=== PATIENT | male | born 1970 | race Caucasian/White ===

== ENCOUNTER 2017-12-05 08:11 | Inpatient (IN) ==
[2017-12-05] MEDS ORDERED: Sod Chloride 0.9% Inj 1,000 ML IV.SIG ONE (08:31)
[2017-12-05] MEDS ORDERED: Morphine Inj 4 MG/ML Vial IV.PUSH ONE (08:31)
[2017-12-05 08:57] LABS: Baso # (Auto) 0.3 th/mm3 (0.0-0.2); Baso % (Auto) 4.3 % (0.0-2.0); Eos % (Auto) 0.2 % (0.0-4.0); Hematocrit 33.6 % (39.0-51.0); Hemoglobin 11.6 gm/dL (13.0-17.0); Lymph # (Auto) 0.9 th/mm3 (1.0-4.8); Lymph % (Auto) 11.7 % (9.0-44.0); Mean Corpuscular HGB Conc 34.6 % (32.0-36.0); Mean Corpuscular Hemoglobin 33.2 pg (27.0-34.0); Mean Corpuscular Volume 95.9 fL (80.0-100.0); Mono # (Auto) 0.3 th/mm3 (0.0-0.9); Mono % (Auto) 3.4 % (0.0-8.0); Neut # (Auto) 6.5 th/mm3 (1.8-7.7); Neut % (Auto) 80.4 % (16.0-70.0); Platelet Count 107 th/mm3 (150-450); Red Cell Distribution Width 15.7 % (11.6-17.2)
[2017-12-05 09:08] LABS: Activated Partial Thrombo Time 25.4 sec (24.3-30.1); INR 1.3 Ratio; Prothrombin Time 13.1 sec (9.8-11.6)
--- NOTE | 2017-12-05 09:08 | ED ---
HPI General Chief complaint: Abdominal Pain Stated complaint: stomach pain/chills/diarrhea x 4 am Time Seen by Provider: 12/05/17 08:27 Source: patient Mode of arrival: ambulatory Limitations: no limitations History of Present Illness HPI narrative: Patient is a 47 year old male who comes in complaining of lower abdominal pain. He says he woke up at 4 this morning with pain in his lower abdomen. He says he then vomited and has had diarrhea. He says the pain has become progressively worse and movement or touching the area makes it worse. He has felt chilled, but did not take his temperature. He has not taken anything for pain. He says he has also developed SOB. He denies any chest pain. He denies sick contacts. Severity is moderate to severe. Related Data Home Medications Medication Instructions Recorded Confirmed No Known Home Medications 12/05/17 12/05/17 Allergies Allergy/AdvReac Type Severity Reaction Status Date / Time No Known Allergies Allergy NONE Uncoded 12/05/17 08:24 Review of Systems ROS: all other systems reviewed are negative Constitutional Reports chills ENT Denies dizziness Cardiovascular Denies chest pain and Denies syncope Respiratory Denies cough and Reports dyspnea Gastrointestinal Reports abdominal pain, Reports diarrhea, Reports nausea and Reports vomiting Genitourinary Denies dysuria and Denies flank pain Musculoskeletal Denies myalgias and Denies arthralgias Integumentary/Breasts Denies sores and Denies wounds Neurologic Denies focal weakness and Denies numbness PMFSH Medical History Medical History Patient denies medical problems (Acute) Surgical History Surgical History Hx of appendectomy (Acute) Family History Family History Other No pertinent family history Social History Social History Substance History: No History of Abuse Second Hand Smoke Exposure: No Smoking Status: Never smoker How Often Do You Have a Drink Containing Alcohol: 4 or more times a week Recent Travel in [facility] within the Last 8 Weeks: No Recent Out of Country Travel within the Last 8 Weeks: No Immunization History Tetanus Immunization: >5 Years Exam Narrative Exam Narrative: GENERAL: Awake and alert, in mild distress due to pain. SKIN: Focused skin assessment warm/dry. No wounds or signs of infection. Jaundice present. HEAD: Atraumatic. Normocephalic. EYES: Pupils equal and round. EOMI. Scleral icterus present. ENT: Mucous membranes pink and moist. NECK: Trachea midline. No JVD. CARDIOVASCULAR: Regular rate and rhythm. No murmur appreciated. RESPIRATORY: No accessory muscle use. Clear to auscultation. Breath sounds equal bilaterally. GASTROINTESTINAL: Abdomen soft, nondistended. Diffusely tender to palpation with voluntary guarding. MUSCULOSKELETAL: No obvious deformities. No clubbing. No cyanosis. No edema. NEUROLOGICAL: Awake and alert. No obvious cranial nerve deficits. Motor grossly within normal limits. Normal speech. PSYCHIATRIC: Appropriate mood and affect; insight and judgment normal. Course Initial Documented Vital Signs Temperature 99 F 12/05/17 08:20 Pulse Rate 84 12/05/17 08:20 Respiratory Rate 19 12/05/17 08:20 Blood Pressure 103/56 L 12/05/17 08:20 Pulse Oximetry 100 12/05/17 08:20 Last Documented Vital Signs Temperature 98.4 F 12/06/17 00:00 Pulse Rate 78 12/06/17 00:00 Respiratory Rate 16 12/06/17 00:00 Blood Pressure 102/56 L 12/06/17 00:00 Pulse Oximetry 96 12/06/17 00:00 Medical Decision Making MDM Narrative Medical decision making narrative: Patient is a 47 year old male who comes in complaining of abdominal pain. Exam shows tenderness to the RLQ and yellowing of the skin. IV established, labs sent. Labs show elevated PT, INR, decrease platelets, elevated bilirubin. CT abd/pelvis performed shows inflammation of the cecum. Patient given Cipro. Flagyl not given because patient drank alcohol last night. Patient admitted for further management. Medical Screen Exam Complete: Yes Emergency Medical Condition: Yes Differential Diagnosis Differential Diagnosis: cholecystitis vs colitis vs liver failure Medical Records Medical records reviewed: Yes I reviewed the patient's medical records. Lab Data Lab results reviewed: Yes I reviewed the patient's lab results. Result diagrams: 12/06/17 06:05 12/06/17 06:05 Lab Results 12/05/17 12/05/17 12/05/17 Range/Units 08:40 08:40 08:40 CBC w Diff Auto diff final WBC 8.0 (4.0-11.0) th/mm3 RBC 3.50 L (4.50-5.90) mil/mm3 Hgb 11.6 L (13.0-17.0) gm/dL Hct 33.6 L (39.0-51.0) % MCV 95.9 (80.0-100.0) fL MCH 33.2 (27.0-34.0) pg MCHC 34.6 (32.0-36.0) % RDW 15.7 (11.6-17.2) % Plt Count 107 L (150-450) th/mm3 MPV 9.0 (7.0-11.0) fL Neut % (Auto) 80.4 H (16.0-70.0) % Lymph % (Auto) 11.7 (9.0-44.0) % [place] % (Auto) 3.4 (0.0-8.0) % Eos % (Auto) 0.2 (0.0-4.0) % Baso % (Auto) 4.3 H (0.0-2.0) % Neut # (Auto) 6.5 (1.8-7.7) th/mm3 Lymph # (Auto) 0.9 L (1.0-4.8) th/mm3 [place] # (Auto) 0.3 (0.0-0.9) th/mm3 Eos # (Auto) 0.0 (0.0-0.4) th/mm3 Baso # (Auto) 0.3 H (0.0-0.2) th/mm3 WBC Differential . Differential Comment . PT 13.1 H (9.8-11.6) sec INR 1.3 Ratio APTT 25.4 (24.3-30.1) sec Sodium 137 (136-145) meq/L Potassium 3.9 (3.5-5.1) meq/L Chloride 101 (98-107) meq/L Carbon Dioxide 24.5 (21.0-32.0) meq/L Anion Gap 12 (5-15) meq/L BUN 13 (7-18) mg/dL Creatinine 1.20 (0.60-1.30) mg/dL Estimated GFR 64 L (>89) mL/min Random Glucose 121 H (74-106) mg/dL Lactic Acid (0.4-2.0) mmol/L Calcium 8.1 L (8.5-10.1) mg/dL Total Bilirubin 2.5 H (0.2-1.0) mg/dL AST 115 H (15-37) U/L ALT 56 (12-78) U/L Alkaline Phosphatase 177 H (45-117) U/L Troponin I (0.02-0.05) ng/mL Total Protein 7.4 (6.4-8.2) g/dL Albumin 2.8 L (3.4-5.0) g/dL Lipase 141 (73-393) U/L Ur Collection Type Urine Color (Yellw/Straw) Urine Clarity (Clear) Urine pH (5.0-8.5) Ur Specific [place] (1.002-1.035) Urine Protein (Neg-Trace) mg/dL Urine Glucose (UA) (Negative) mg/dL Urine Ketones (Negative) mg/dL Urine Occult Blood (Negative) Urine Nitrate (Negative) Urine Bilirubin (Negative) Urine Urobilinogen (Less than 2) mg/dL Ur Leukocyte Esterase (Negative) Urine RBC (0-3) /hpf Urine WBC (0-5) /hpf Ur Squamous Epith Cells (0-5) /hpf Hyaline Casts (0-3) /lpf Urine Mucus (Occasional) /lpf Micro UA Comment Ur Microscopic Review Urine Culture Comments Blood Type Blood Type Recheck Antibody Screen 12/05/17 12/05/17 12/05/17 Range/Units 08:40 08:40 08:40 CBC w Diff WBC (4.0-11.0) th/mm3 RBC (4.50-5.90) mil/mm3 Hgb (13.0-17.0) gm/dL Hct (39.0-51.0) % MCV (80.0-100.0) fL MCH (27.0-34.0) pg MCHC (32.0-36.0) % RDW (11.6-17.2) % Plt Count (150-450) th/mm3 MPV (7.0-11.0) fL Neut % (Auto) (16.0-70.0) % Lymph % (Auto) (9.0-44.0) % [place] % (Auto) (0.0-8.0) % Eos % (Auto) (0.0-4.0) % Baso % (Auto) (0.0-2.0) % Neut # (Auto) (1.8-7.7) th/mm3 Lymph # (Auto) (1.0-4.8) th/mm3 [place] # (Auto) (0.0-0.9) th/mm3 Eos # (Auto) (0.0-0.4) th/mm3 Baso # (Auto) (0.0-0.2) th/mm3 WBC Differential Differential Comment PT (9.8-11.6) sec INR Ratio APTT (24.3-30.1) sec Sodium (136-145) meq/L Potassium (3.5-5.1) meq/L Chloride (98-107) meq/L Carbon Dioxide (21.0-32.0) meq/L Anion Gap (5-15) meq/L BUN (7-18) mg/dL Creatinine (0.60-1.30) mg/dL Estimated GFR (>89) mL/min Random Glucose (74-106) mg/dL Lactic Acid 1.7 (0.4-2.0) mmol/L Calcium (8.5-10.1) mg/dL Total Bilirubin (0.2-1.0) mg/dL AST (15-37) U/L ALT (12-78) U/L Alkaline Phosphatase (45-117) U/L Troponin I Less than 0.02 L (0.02-0.05) ng/mL Total Protein (6.4-8.2) g/dL Albumin (3.4-5.0) g/dL Lipase (73-393) U/L Ur Collection Type Urine Color (Yellw/Straw) Urine Clarity (Clear) Urine pH (5.0-8.5) Ur Specific [place] (1.002-1.035) Urine Protein (Neg-Trace) mg/dL Urine Glucose (UA) (Negative) mg/dL Urine Ketones (Negative) mg/dL Urine Occult Blood (Negative) Urine Nitrate (Negative) Urine Bilirubin (Negative) Urine Urobilinogen (Less than 2) mg/dL Ur Leukocyte Esterase (Negative) Urine RBC (0-3) /hpf Urine WBC (0-5) /hpf Ur Squamous Epith Cells (0-5) /hpf Hyaline Casts (0-3) /lpf Urine Mucus (Occasional) /lpf Micro UA Comment Ur Microscopic Review Urine Culture Comments Blood Type A Positive Blood Type Recheck Required Antibody Screen Negative 12/05/17 12/06/17 12/06/17 Range/Units 11:10 06:05 06:05 CBC w Diff Slide review pending WBC 8.3 (4.0-11.0) th/mm3 RBC 3.15 L (4.50-5.90) mil/mm3 Hgb 10.4 L (13.0-17.0) gm/dL Hct 31.5 L (39.0-51.0) % MCV 99.8 D (80.0-100.0) fL MCH 33.0 (27.0-34.0) pg MCHC 33.1 (32.0-36.0) % RDW 14.7 (11.6-17.2) % Plt Count 76 L (150-450) th/mm3 MPV 9.4 (7.0-11.0) fL Neut % (Auto) 70.5 H (16.0-70.0) % Lymph % (Auto) 22.2 (9.0-44.0) % [place] % (Auto) 5.7 (0.0-8.0) % Eos % (Auto) 1.5 (0.0-4.0) % Baso % (Auto) 0.1 (0.0-2.0) % Neut # (Auto) 5.9 (1.8-7.7) th/mm3 Lymph # (Auto) 1.8 (1.0-4.8) th/mm3 [place] # (Auto) 0.5 (0.0-0.9) th/mm3 Eos # (Auto) 0.1 (0.0-0.4) th/mm3 Baso # (Auto) 0.0 (0.0-0.2) th/mm3 WBC Differential Differential Comment . PT (9.8-11.6) sec INR Ratio APTT (24.3-30.1) sec Sodium 137 (136-145) meq/L Potassium 3.2 L (3.5-5.1) meq/L Chloride 102 (98-107) meq/L Carbon Dioxide 27.3 (21.0-32.0) meq/L Anion Gap 8 (5-15) meq/L BUN 14 (7-18) mg/dL Creatinine 1.20 (0.60-1.30) mg/dL Estimated GFR 64 L (>89) mL/min Random Glucose 91 (74-106) mg/dL Lactic Acid (0.4-2.0) mmol/L Calcium 7.6 L (8.5-10.1) mg/dL Total Bilirubin 4.3 H (0.2-1.0) mg/dL AST 77 H (15-37) U/L ALT 40 (12-78) U/L Alkaline Phosphatase 136 H (45-117) U/L Troponin I (0.02-0.05) ng/mL Total Protein 6.6 D (6.4-8.2) g/dL Albumin 2.4 L (3.4-5.0) g/dL Lipase (73-393) U/L Ur Collection Type Clean catch Urine Color Yellow (Yellw/Straw) Urine Clarity Clear (Clear) Urine pH 5.5 (5.0-8.5) Ur Specific [place] 1.015 (1.002-1.035) Urine Protein Negative (Neg-Trace) mg/dL Urine Glucose (UA) Negative (Negative) mg/dL Urine Ketones Negative (Negative) mg/dL Urine Occult Blood Negative (Negative) Urine Nitrate Negative (Negative) Urine Bilirubin Negative (Negative) Urine Urobilinogen 1.0 (Less than 2) mg/dL Ur Leukocyte Esterase Negative (Negative) Urine RBC 0-3 (0-3) /hpf Urine WBC 0-5 (0-5) /hpf Ur Squamous Epith Cells 0-5 (0-5) /hpf Hyaline Casts 0-3 (0-3) /lpf Urine Mucus Few H (Occasional) /lpf Micro UA Comment Culture not ind Ur Microscopic Review Microscopic reviewed Urine Culture Comments Culture not ind Blood Type Blood Type Recheck Antibody Screen Imaging Data Radiologist's impression: Abdomen/Pelvis CT 12/05/17 08:31 . CONCLUSION: 1. Minimal inflammatory changes around the cecum without adenopathy. Patient's appendix is surgically absent. Considerations would include inflammatory process such as typhlitis and early colitis. 2. No other significant amount is appreciated. Chest X-Ray 12/05/17 08:51 CONCLUSION: Mild left lung scarring or atelectasis Discharge Plan Discharge Disposition Patient Disposition: 30 Still Patient Discharge Condition Condition: Stable Discharge Details Diagnosis: Colitis, Hyperbilirubinemia, Coagulopathy Physicians Team ED Provider: Laura Curran Primary Care Provider: Primary Care Ainsley Lin Attending Provider: Marilyn Petersen Discharge Interventions Interventions: ED Discharge Assessment Last Done: 12/05/17 13:09 Vital Signs Last Done: 12/05/17 10:15 Status ED Status: Left Department Discharge Information Discharge Date/Time: 12/05/17 13:10
--- NOTE | 2017-12-05 09:15 | XR ---
EXAM DATE: 12/05/2017 8:51 AM EDT AGE/SEX: 47 years / Male INDICATIONS: Shortness of breath, abdominal pain, and diarrhea. CLINICAL DATA: This is the patient's initial encounter. Patient reports that signs and symptoms have been present for 1 day and indicates a pain score of 7/10. MEDICAL/SURGICAL HISTORY: None. None. COMPARISON: No prior exams available for comparison. FINDINGS: Slight probable subsegmental atelectasis in the left lower lobe. Lungs otherwise clear. No pleural ef fusion identified. Cardiac contours are satisfactory. CONCLUSION: Mild left lung scarring or atelectasis Electronically signed by: Vitor Wylie MD 12/05/2017 9:14 AM EDT
[2017-12-05 10:22] LABS: Anion Gap 12 meq/L (5-15); Blood Urea Nitrogen 13 mg/dL (7-18); Carbon Dioxide 24.5 meq/L (21.0-32.0); Chloride 101 meq/L (98-107); Potassium 3.9 meq/L (3.5-5.1); Sodium 137 meq/L (136-145)
[2017-12-05 10:23] LABS: Alanine Aminotransferase 56 U/L (12-78); Aspartate Aminotransferase 115 U/L (15-37); Calcium 8.1 mg/dL (8.5-10.1); Glomerular Filtration Rate 64 mL/min (>89); Glucose,Random 121 mg/dL (74-106); Total Protein 7.4 g/dL (6.4-8.2)
[2017-12-05 10:24] LABS: Albumin 2.8 g/dL (3.4-5.0); Alkaline Phosphatase 177 U/L (45-117); Lipase 141 U/L (73-393)
--- NOTE | 2017-12-05 10:52 | CT ---
EXAM DATE: 12/05/2017 9:00 AM EDT AGE/SEX: 47 years / Male INDICATIONS: Lower abdominal pain, nausea, vomiting and diarrhea. CLINICAL DATA: This is the patient's initial encounter. Patient reports that signs and symptoms have been present for 1 day and indicates a pain score of 7/10. MEDICAL/SURGICAL HISTORY: None. Appendectomy. ORAL CONTRAST: No oral contrast ingested. RADIATION DOSE: 7.91 CTDI (mGy) COMPARISON: No prior exams available for comparison. TECHNIQUE: Multiple contiguous axial images were obtained through the abdomen and pelvis following b olus infusion of 90 ml Omnipaque 350 (iohexol) nonionic water-soluble contrast as a single exam dos e. No oral contrast ingested. Using automated exposure control and adjustment of the mA and/or kV ac cording to patient size, radiation dose was kept as low as reasonably achievable to obtain optimal di agnostic quality images. DICOM format image data is available electronically for review and comparis on. FINDINGS: Minimal bibasilar parental changes with a small 7 mm nodule right base. There is no pericardial effusion The liver and gallbladder are unremarkable. Pancreas and spleen appear unremarkable. Adrenals and kidneys are unremarkable. There are mild inflammatory changes in the right lower quadrant with some associated bowel wall thick ening. By history the patient's appendix is surgically absent. The descending, transverse and descend ing colon unremarkable. In the pelvis there are no inflammatory changes. Bladder prostate and seminal vesicles appear unremar kable. There is no ascites. . CONCLUSION: 1. Minimal inflammatory changes around the cecum without adenopathy. Patient's appendix is surgicall y absent. Considerations would include inflammatory process such as typhlitis and early colitis. 2. No other significant amount is appreciated. Electronically signed by: El Soares MD 12/05/2017 10:51 AM EDT
[2017-12-05 11:23] LABS: Bilirubin,Urine Negative (Negative); Clarity,Urine Clear (Clear); Color,Urine Yellow (Yellw/Straw); Glucose,Urine (UA) Negative (Negative); Leukocyte Esterase,Urine Negative (Negative); Nitrite,Urine Negative (Negative); PH,Urine 5.5 (5.0-8.5); Specific Gravity,Urine 1.015 (1.002-1.035)
[2017-12-05 11:35] LABS: RBC,Urine 0-3 /hpf (0-3); Squamous Epithelial Cell,Urine 0-5 /hpf (0-5)
[2017-12-05 11:36] LABS: Hyaline Casts,Urine 0-3 /lpf (0-3); Mucus,Urine Few /lpf (Occasional); WBC,Urine 0-5 /hpf (0-5)
[2017-12-05] MEDS ORDERED: Ciprofloxacin 400 MG/200 ML 400 MG/200 ML PIGGYBACK IV.SIG ONE (11:46)
[2017-12-05] MEDS ORDERED: *morphine SULFATE 2 MG/ML PERIprocedure ONLY IV.PUSH STA (11:47)
[2017-12-05] MEDS ORDERED: Morphine Sulfate Inj 2 MG/ML Vial IV.PUSH ONE (12:07)
--- NOTE | 2017-12-05 12:41 | P.HPIM ---
History of Present Illness Primary Care Physician: No Primary Care Physician Chief Complaint: abdominal pain History of Present Illness: patient is a 47 y/o male with history of alcohol abuse- otherwise with no other significant past medical history presented to ER with abdominal pain. he says that the pain started yesterday. pain was initially 4/10 but it gradually got worse. pain is periumbilical with no radiation. he says that he had some fever and night sweats last night along with some nausea, vomiting. he says he had on and off mild diarrhea. Inpatient Certification: I certify that the inpatient services were ordered in accordance with Medicare regulations governing the order. This includes certification that hospital inpatient services are reasonable and necessary and in the case of services not specified as inpatient-only under 42 CFR 419.22(n), that they are appropriately provided as inpatient services in accordance to with the 2-midnight benchmark under 43 CFR 412.3(e) Review of Systems All other systems reviewed negative except as stated in HPI PMFSH - History History Provided By: Patient - Medical History Medical History: Medical History (Last Reviewed 12/05/17 @ 12:38 by Marilyn Petersen MD) Patient denies medical problems - Surgical History Surgical History: Surgical History (Last Reviewed 12/05/17 @ 12:38 by Marilyn Peteresn MD) Hx of appendectomy - Family History Family History: Family History (Last Updated 12/05/17 @ 12:38 by Marilyn Petersen MD) Other No pertinent family history - Tobacco History Second Hand Smoke Exposure: No Smoking Status: Never smoker - Alcohol History How Often Do You Have a Drink Containing Alcohol: 4 or more times a week - Substance Use History Substance History: No History of Abuse - Travel History Recent Travel in the [place] Within the Last 8 Weeks: No Recent Travel Out of the Country Within the Last 8 Weeks: No - Immunization History Tetanus Immunization: >5 Years Medications and Allergies Active Medications: Active Medications Ciprofloxacin/Dextrose (Cipro 400 Mg/200 Ml Inj) 400 mg in 200 mls @ 200 mls/ hr IV.SIG ONCE ONE Stop: 12/05/17 12:45 Last Admin: 12/05/17 12:03 Dose: 200 mls/hr Sodium Chloride (Ns Flush) 2 ml IV.FLUSH PRN PRN PRN Reason: FLUSH AFTER USING IV ACCESS Allergies Allergy/AdvReac Type Severity Reaction Status Date / Time No Known Allergies Allergy NONE Uncoded 12/05/17 08:24 Home Medications Medication Instructions Recorded Confirmed Type No Known Home Medications 12/05/17 12/05/17 History Exam Vital signs: Vital Signs 12/05/17 08:20 12/05/17 09:02 12/05/17 10:15 Temperature 99 F Pulse Rate 84 96 H 88 Respiratory Rate 19 18 18 Blood Pressure 103/56 L 116/65 116/66 Pulse Oximetry 100 98 95 Intake & Output 12/04/17 12/05/17 12/05/17 18:59 06:59 18:59 Intake Total 1000 / 1000 Balance 1000 / 1000 Weight 79.5 kg Intake: IV 1000 / 1000 NS Inj 1,000 ML @ Wide Open IV. 1000 / 1000 SIG BOLUS ONE Rx#:[id number] - Constitutional no acute distress - Routine HEENT Exam Eye: Present: PERRL - Routine Neck Exam Present: full ROM - Routine Respiratory Exam Present: CTA bilaterally - Routine Cardiovascular Exam Present: RRR - Routine Abdominal Exam Present: soft, tenderness (mild periumbilical tenderness.) - Routine Extremities Exam Comments: no pedal edema. - Routine Neurological Exam Present: alert, oriented X3 Results - Labs CBC & Chem 7: 12/05/17 08:40 12/05/17 08:40 Labs: Short CBC 12/05/17 Range/Units 08:40 WBC 8.0 (4.0-11.0) th/mm3 Hgb 11.6 L (13.0-17.0) gm/dL Hct 33.6 L (39.0-51.0) % Plt Count 107 L (150-450) th/mm3 BMP 12/05/17 08:40 Sodium 137 Potassium 3.9 Chloride 101 Carbon Dioxide 24.5 BUN 13 Creatinine 1.20 Calcium 8.1 L Cardiac Enzymes 12/05/17 Range/Units 08:40 Troponin I Less than 0.02 L (0.02-0.05) ng/mL Liver Function 12/05/17 Range/Units 08:40 Total Bilirubin 2.5 H (0.2-1.0) mg/dL AST 115 H (15-37) U/L ALT 56 (12-78) U/L Alkaline Phosphatase 177 H (45-117) U/L Albumin 2.8 L (3.4-5.0) g/dL Urine 12/05/17 Range/Units 11:10 Urine Color Yellow (Yellw/Straw) Urine Clarity Clear (Clear) Urine pH 5.5 (5.0-8.5) Ur Specific [place] 1.015 (1.002-1.035) Urine Protein Negative (Neg-Trace) mg/dL Urine Glucose (UA) Negative (Negative) mg/dL - Imaging Impressions Abdomen/Pelvis CT 12/05/17 08:31 . CONCLUSION: 1. Minimal inflammatory changes around the cecum without adenopathy. Patient's appendix is surgically absent. Considerations would include inflammatory process such as typhlitis and early colitis. 2. No other significant amount is appreciated. Chest X-Ray 12/05/17 08:51 CONCLUSION: Mild left lung scarring or atelectasis Caprini VTE Risk Assessment Caprini VTE Risk Assessment: Moderate/High Risk (score >= 2) VTE Pharmacological Exception Reason: High risk for bleeding Caprini Risk Assessment Model: Point Value = 1 Point Value = 2 Point Value = 3 Point Value = 5 Age 41-60 Minor surgery BMI > 25 kg/m2 Swollen legs Varicose veins or History of unexplained or recurrent spontaneous Oral contraceptives or hormone replacement Sepsis (< 1 month) Serious lung disease, including pneumonia (< 1 month) Abnormal pulmonary function Acute myocardial infarction Congestive heart failure (< 1 month) History of inflammatory bowel disease Medical patient at bed rest Age 61-74 Arthroscopic surgery Major open surgery (> 45 min) Laparoscopic surgery (> 45 min) Malignancy Confined to bed (> 72 hours) Immobilizing plaster cast Central venous access Age >= 75 History of VTE Family history of VTE Factor V Leiden Prothrombin [id number] Lupus anticoagulant Anticardiolipin antibodies Elevated serum homocysteine Heparin-induced thrombocytopenia Other congenital or acquired thrombophilia Stroke (< 1 month) Elective arthroplasty Hip, pelvis, or leg fracture Acute spinal cord injury (< 1 month) Prophylaxis Regimen: Total Risk Factor Score Risk Level Prophylaxis Regimen 0-1 Low Early ambulation 2 Moderate Order ONE of the following: *Sequential Compression Device (SCD) *Heparin 5000 units SQ BID 3-4 Higher Order ONE of the following medications: *Heparin 5000 units SQ TID *Enoxaparin/Lovenox 40 mg SQ daily (WT < 150 kg, CrCl > 30 mL/min) *Enoxaparin/Lovenox 30 mg SQ daily (WT < 150 kg, CrCl > 10-29 mL/min) *Enoxaparin/Lovenox 30 mg SQ BID (WT < 150 kg, CrCl > 30 mL/min) AND/OR *Sequential Compression Device (SCD) 5 or more Highest Order ONE of the following medications: *Heparin 5000 units SQ TID (Preferred with Epidurals) *Enoxaparin/Lovenox 40 mg SQ daily (WT < 150 kg, CrCl > 30 mL/min) *Enoxaparin/Lovenox 30 mg SQ daily (WT < 150 kg, CrCl > 10-29 mL/min) *Enoxaparin/Lovenox 30 mg SQ BID (WT < 150 kg, CrCl > 30 mL/min) AND *Sequential Compression Device (SCD) Assessment and Plan - Plan A/P - colitis keep NPO for now- continue with IV antibiotics- continue with supportive care with IV fluid, pain control and antiemetics as needed. -alcohol abuse start o CIWA- counselled on drinking cessation. -thrombocytopenia/ elevated LFT's - due to alcohol; will monitor. Discussed Condition With: ER physician and the patient. Discharge Planning: home- within the next 48 hrs if stable.
[2017-12-05] MEDS ORDERED: Acetaminophen 325 MG Tablet PO PRN (12:42)
[2017-12-05] MEDS ORDERED: LORazepam 1 MG Tablet PO PRN (12:43)
[2017-12-05] MEDS ORDERED: Haloperidol Inj 5 MG/ML Ampul IV.PUSH PRN (12:43)
--- NOTE | 2017-12-05 13:57 | ECG ---
Date Performed: 12/05/2017 Time Performed: 08:49:28 PTAGE: 47 years EKG: Sinus rhythm NO PREVIOUS TRACING DOCTOR: Aminah Erazo M.D. Interpretating Date/Time 12/05/2017 13:56:10
[2017-12-05] MEDS ORDERED: Multivitamin Inj 10 ML, Thiamine Inj 100 MG, Folic Acid Inj 1 MG in Dextrose 5%/NaCl 0.... IV.SIG SCH (14:00)
[2017-12-05] MEDS: Multivitamin Inj 10 ML, Thiamine Inj 100 MG, Folic Acid Inj 1 MG in Sodium Chlor 0.9% I... IV.SIG SCH (15:50)
[2017-12-05] MEDS: Piperacil/Tazo 3.375 GM Premix 50 ML IV.SIG SCH ×2 (15:51→22:08)
[2017-12-05] MEDS: Morphine Inj 4 MG/ML Vial IV.PUSH PRN ×2 (18:05→22:07)
[2017-12-06] MEDS: Morphine Inj 4 MG/ML Vial IV.PUSH PRN (02:37)
[2017-12-06] MEDS: Piperacil/Tazo 3.375 GM Premix 50 ML IV.SIG SCH ×3 (05:55→21:57)
[2017-12-06 06:34] LABS: Baso % (Auto) 0.1 % (0.0-2.0); Eos # (Auto) 0.1 th/mm3 (0.0-0.4); Eos % (Auto) 1.5 % (0.0-4.0); Hematocrit 31.5 % (39.0-51.0); Hemoglobin 10.4 gm/dL (13.0-17.0); Lymph # (Auto) 1.8 th/mm3 (1.0-4.8); Lymph % (Auto) 22.2 % (9.0-44.0); Mean Corpuscular HGB Conc 33.1 % (32.0-36.0); Mean Corpuscular Volume 99.8 fL (80.0-100.0); Mean Platelet Volume 9.4 fL (7.0-11.0); Mono # (Auto) 0.5 th/mm3 (0.0-0.9); Mono % (Auto) 5.7 % (0.0-8.0); Neut # (Auto) 5.9 th/mm3 (1.8-7.7); Neut % (Auto) 70.5 % (16.0-70.0); Platelet Count 76 th/mm3 (150-450); Red Blood Count 3.15 mil/mm3 (4.50-5.90); Red Cell Distribution Width 14.7 % (11.6-17.2); White Blood Count 8.3 th/mm3 (4.0-11.0)
[2017-12-06 06:52] LABS: Chloride 102 meq/L (98-107); Potassium 3.2 meq/L (3.5-5.1); Sodium 137 meq/L (136-145)
[2017-12-06 06:57] LABS: Albumin 2.4 g/dL (3.4-5.0); Anion Gap 8 meq/L (5-15); Blood Urea Nitrogen 14 mg/dL (7-18); Calcium 7.6 mg/dL (8.5-10.1); Carbon Dioxide 27.3 meq/L (21.0-32.0); Glucose,Random 91 mg/dL (74-106)
[2017-12-06 07:00] LABS: Alanine Aminotransferase 40 U/L (12-78); Aspartate Aminotransferase 77 U/L (15-37); Glomerular Filtration Rate 64 mL/min (>89)
[2017-12-06 07:02] LABS: Total Protein 6.6 g/dL (6.4-8.2)
[2017-12-06 07:03] LABS: Alkaline Phosphatase 136 U/L (45-117)
[2017-12-06] MEDS: Multivitamin Inj 10 ML, Thiamine Inj 100 MG, Folic Acid Inj 1 MG in Sodium Chlor 0.9% I... IV.SIG SCH (10:12)
--- NOTE | 2017-12-06 12:01 | P.PNIM ---
Subjective Interval history: f/u; colitis in no acute distress. abdominal pain is much better today. low garde fever last night. Physical Exam Vital signs: Vital Signs 12/05/17 13:00 12/05/17 15:44 12/05/17 18:04 Temperature 100.3 F H 99.8 F H Pulse Rate 82 87 76 Respiratory Rate 18 20 16 Blood Pressure 118/67 97/57 L 116/72 Pulse Oximetry 93 L 12/05/17 20:00 12/06/17 00:00 12/06/17 08:00 Temperature 98.5 F 98.4 F 97.6 F Pulse Rate 81 78 66 Respiratory Rate 16 16 12 Blood Pressure 105/63 102/56 L 100/56 L Pulse Oximetry 95 96 95 Intake & Output 12/05/17 12/06/17 12/06/17 18:59 06:59 18:59 Intake Total 1250 / 1250 851.2 / 851.2 Balance 1250 / 1250 851.2 / 851.2 Weight 79.5 kg 78.5 kg Intake: IV 1250 / 1250 611.2 / 611.2 Cipro 400 MG/200 ML Inj 400 mg 200 / 200 In 200 ml @ 200 mls/hr IV.SIG ONCE ONE Rx#:[id number] MVI-12 Inj 10 ML Thiamine Inj 511.2 / 511.2 100 MG Folvite Inj 1 MG In NS Inj 500 ML @ 127.8 mls/hr IV. SIG DAILY [facility] Rx#:[id number] Zosyn 3.375 GM Premix 50 ML @ 50 / 50 100 / 100 100 mls/hr IV.SIG Q8H [facility] Rx#: [id number] NS Inj 1,000 ML @ Wide Open IV. 1000 / 1000 SIG BOLUS ONE Rx#:[id number] Oral 240 / 240 Other: # Voids 1 1 - Constitutional no acute distress - Routine Respiratory Exam Present: CTA bilaterally - Routine Cardiovascular Exam Present: RRR - Routine Abdominal Exam Present: soft - Routine Extremities Exam Comments: no pedal edema. - Routine Neurological Exam Present: alert, oriented X3 Results - Labs CBC & Chem 7: 12/06/17 06:05 12/06/17 06:05 Laboratory Results - last 24 hr 12/06/17 12/06/17 06:05 06:05 CBC w Diff Slide review pending WBC 8.3 RBC 3.15 L Hgb 10.4 L Hct 31.5 L MCV 99.8 D MCH 33.0 MCHC 33.1 RDW 14.7 Plt Count 76 L MPV 9.4 Neut % (Auto) 70.5 H Lymph % (Auto) 22.2 [place] % (Auto) 5.7 Eos % (Auto) 1.5 Baso % (Auto) 0.1 Neut # (Auto) 5.9 Lymph # (Auto) 1.8 [place] # (Auto) 0.5 Eos # (Auto) 0.1 Baso # (Auto) 0.0 WBC Differential . Diff Scan Auto diff confirmed Differential Comment . Sodium 137 Potassium 3.2 L Chloride 102 Carbon Dioxide 27.3 Anion Gap 8 BUN 14 Creatinine 1.20 Estimated GFR 64 L Random Glucose 91 Calcium 7.6 L Total Bilirubin 4.3 H AST 77 H ALT 40 Alkaline Phosphatase 136 H Total Protein 6.6 D Albumin 2.4 L Assessment and Plan - Plan A/P - colitis- improving. start on liquid diet and advance as tolerated. continue with IV antibiotics- continue with supportive care with IV fluid, pain control and antiemetics as needed. -alcohol abuse started on CIWA- counselled on drinking cessation. -thrombocytopenia/ elevated LFT's - due to alcohol; will monitor. -hypokalemia; will replace and monitor. Discharge Planning: home tomorrow if stable and tolerates the diet.
[2017-12-06 20:24] VITALS: RESP 20
[2017-12-07 01:41] VITALS: BP 102/57; PULSE 72; TEMP 97.5; O2SAT 96
[2017-12-07] MEDS: Piperacil/Tazo 3.375 GM Premix 50 ML IV.SIG SCH (05:24)
[2017-12-07 06:17] LABS: Baso % (Auto) 0.2 % (0.0-2.0); Eos # (Auto) 0.2 th/mm3 (0.0-0.4); Eos % (Auto) 3.9 % (0.0-4.0); Hematocrit 30.8 % (39.0-51.0); Hemoglobin 10.1 gm/dL (13.0-17.0); Lymph # (Auto) 1.9 th/mm3 (1.0-4.8); Mean Corpuscular HGB Conc 32.8 % (32.0-36.0); Mean Corpuscular Hemoglobin 32.8 pg (27.0-34.0); Mean Platelet Volume 9.1 fL (7.0-11.0); Mono # (Auto) 0.3 th/mm3 (0.0-0.9); Mono % (Auto) 5.8 % (0.0-8.0); Neut # (Auto) 2.6 th/mm3 (1.8-7.7); Neut % (Auto) 53.1 % (16.0-70.0); Platelet Count 81 th/mm3 (150-450); Red Blood Count 3.08 mil/mm3 (4.50-5.90); Red Cell Distribution Width 14.4 % (11.6-17.2)
[2017-12-07 06:28] LABS: Chloride 106 meq/L (98-107); Potassium 3.8 meq/L (3.5-5.1); Sodium 139 meq/L (136-145)
[2017-12-07 06:31] LABS: Calcium 7.9 mg/dL (8.5-10.1)
[2017-12-07 06:32] LABS: Albumin 2.4 g/dL (3.4-5.0); Anion Gap 7 meq/L (5-15); Blood Urea Nitrogen 8 mg/dL (7-18); Carbon Dioxide 26.1 meq/L (21.0-32.0); Glucose,Random 82 mg/dL (74-106)
[2017-12-07 06:35] LABS: Alanine Aminotransferase 34 U/L (12-78); Aspartate Aminotransferase 57 U/L (15-37); Glomerular Filtration Rate 79 mL/min (>89)
[2017-12-07 06:49] LABS: Alkaline Phosphatase 130 U/L (45-117); Total Protein 6.6 g/dL (6.4-8.2)
--- NOTE | 2017-12-07 07:55 | P.PNIM ---
Subjective Interval history: f/u; colitis in no acute distress. abdominal pain has much improved. no nausea/vomiting. tolerating the liquid diet. no new complaints. d/w the RN. Physical Exam Vital signs: Vital Signs 12/06/17 08:00 12/06/17 12:00 12/06/17 16:00 Temperature 97.6 F 97.0 F L 96.1 F L Pulse Rate 66 66 69 Respiratory Rate 12 13 13 Blood Pressure 100/56 L 103/64 107/60 Pulse Oximetry 95 95 97 12/06/17 20:00 12/07/17 00:00 Temperature 97 F L 97.5 F L Pulse Rate 74 72 Respiratory Rate 20 20 Blood Pressure 106/61 102/57 L Pulse Oximetry 97 96 Intake & Output 12/06/17 12/07/17 12/07/17 18:59 06:59 18:59 Intake Total 1881.2 / 1881.2 580 / 580 Output Total 4 / 4 Balance 1877.2 / 1877.2 580 / 580 Weight 78.6 kg Intake: IV 561.2 / 561.2 100 / 100 MVI-12 Inj 10 ML Thiamine Inj 511.2 / 511.2 100 MG Folvite Inj 1 MG In NS Inj 500 ML @ 127.8 mls/hr IV. SIG DAILY REMY Rx#:[id number] Zosyn 3.375 GM Premix 50 ML @ 50 / 50 100 / 100 100 mls/hr IV.SIG Q8H REMY Rx#: [id number] Oral 720 / 720 480 / 480 Other 600 / 600 Output: Stool 4 / 4 Other: Other Intake Source Saline Solution # Voids 4 4 Date of Last Bowel Movement 12/06/17 # Bowel Movements 3 - Constitutional no acute distress - Routine Respiratory Exam Present: CTA bilaterally - Routine Cardiovascular Exam Present: RRR - Routine Abdominal Exam Present: soft - Routine Extremities Exam Comments: no pedal edema. - Routine Neurological Exam Present: alert, oriented X3 Results - Labs CBC & Chem 7: 12/07/17 05:50 12/07/17 05:50 Laboratory Results - last 24 hr 12/07/17 12/07/17 05:50 05:50 CBC w Diff Slide review pending WBC 5.0 RBC 3.08 L Hgb 10.1 L Hct 30.8 L MCV 100.0 MCH 32.8 MCHC 32.8 RDW 14.4 Plt Count 81 L MPV 9.1 Neut % (Auto) 53.1 Lymph % (Auto) 37.0 [place] % (Auto) 5.8 Eos % (Auto) 3.9 Baso % (Auto) 0.2 Neut # (Auto) 2.6 Lymph # (Auto) 1.9 [place] # (Auto) 0.3 Eos # (Auto) 0.2 Baso # (Auto) 0.0 WBC Differential . Diff Scan Auto diff confirmed Differential Comment . Sodium 139 Potassium 3.8 Chloride 106 Carbon Dioxide 26.1 Anion Gap 7 BUN 8 Creatinine 1.00 Estimated GFR 79 L Random Glucose 82 Calcium 7.9 L Total Bilirubin 1.8 H AST 57 H ALT 34 Alkaline Phosphatase 130 H Total Protein 6.6 Albumin 2.4 L - Procedures none. Assessment and Plan - Plan A/P - colitis- improving. advance the diet. continue with antibiotics- -alcohol abuse started on CIWA- counselled on drinking cessation. -thrombocytopenia/ elevated LFT's - due to alcohol- -hypokalemia; replaced. Discharge Planning: dc home today if tolerates the diet. see med list. f/u; pcp. d/w the patient and RN.
--- NOTE | 2017-12-07 07:56 | P.DS ---
Date of admission: 12/05/17 11:46 Primary care physician: No Primary Care Physician Brief History from admission: patient is a 47 y/o male with history of alcohol abuse- otherwise with no other significant past medical history presented to ER with abdominal pain. he says that the pain started yesterday. pain was initially 4/10 but it gradually got worse. pain is periumbilical with no radiation. he says that he had some fever and night sweats last night along with some nausea, vomiting. he says he had on and off mild diarrhea. DS: Summary Hospital Course: patient was admitted with colitis. he was started on IV antibiotics and supportive care. his clinical condition improved. he will be switched to oral antibiotics with f/u with his PCP. - Time Spent with Patient Total time spent providing and/or coordinating discharge services: Less than 30 minutes - Quality: VTE Deep Vein Thrombosis/Pulmonary Embolism Present on Admission: No Exam Vital signs: Vital Signs 12/06/17 08:00 12/06/17 12:00 12/06/17 16:00 Temperature 97.6 F 97.0 F L 96.1 F L Pulse Rate 66 66 69 Respiratory Rate 12 13 13 Blood Pressure 100/56 L 103/64 107/60 Pulse Oximetry 95 95 97 12/06/17 20:00 12/07/17 00:00 Temperature 97 F L 97.5 F L Pulse Rate 74 72 Respiratory Rate 20 20 Blood Pressure 106/61 102/57 L Pulse Oximetry 97 96 Intake & Output 12/06/17 12/07/17 12/07/17 18:59 06:59 18:59 Intake Total 1881.2 / 1881.2 580 / 580 Output Total 4 / 4 Balance 1877.2 / 1877.2 580 / 580 Weight 78.6 kg Intake: IV 561.2 / 561.2 100 / 100 MVI-12 Inj 10 ML Thiamine Inj 511.2 / 511.2 100 MG Folvite Inj 1 MG In NS Inj 500 ML @ 127.8 mls/hr IV. SIG DAILY REMY Rx#:[id number] Zosyn 3.375 GM Premix 50 ML @ 50 / 50 100 / 100 100 mls/hr IV.SIG Q8H REMY Rx#: [id number] Oral 720 / 720 480 / 480 Other 600 / 600 Output: Stool 4 / 4 Other: Other Intake Source Saline Solution # Voids 4 4 Date of Last Bowel Movement 12/06/17 # Bowel Movements 3 - Constitutional no acute distress - Routine Respiratory Exam Present: CTA bilaterally - Routine Cardiovascular Exam Present: RRR - Routine Abdominal Exam Present: soft - Routine Extremities Exam Comments: no pedal edema. - Routine Neurological Exam Present: alert, oriented X3 Results Procedures completed during hospitalization: none. Labs on day of discharge: Labs from last 24 hours 12/07/17 12/07/17 05:50 05:50 CBC w Diff Slide review pending WBC 5.0 RBC 3.08 L Hgb 10.1 L Hct 30.8 L MCV 100.0 MCH 32.8 MCHC 32.8 RDW 14.4 Plt Count 81 L MPV 9.1 Neut % (Auto) 53.1 Lymph % (Auto) 37.0 [place] % (Auto) 5.8 Eos % (Auto) 3.9 Baso % (Auto) 0.2 Neut # (Auto) 2.6 Lymph # (Auto) 1.9 [place] # (Auto) 0.3 Eos # (Auto) 0.2 Baso # (Auto) 0.0 WBC Differential . Diff Scan Auto diff confirmed Differential Comment . Sodium 139 Potassium 3.8 Chloride 106 Carbon Dioxide 26.1 Anion Gap 7 BUN 8 Creatinine 1.00 Estimated GFR 79 L Random Glucose 82 Calcium 7.9 L Total Bilirubin 1.8 H AST 57 H ALT 34 Alkaline Phosphatase 130 H Total Protein 6.6 Albumin 2.4 L - Impressions ITS Impressions Abdomen/Pelvis CT 12/05/17 08:31 . CONCLUSION: 1. Minimal inflammatory changes around the cecum without adenopathy. Patient's appendix is surgically absent. Considerations would include inflammatory process such as typhlitis and early colitis. 2. No other significant amount is appreciated. Chest X-Ray 12/05/17 08:51 CONCLUSION: Mild left lung scarring or atelectasis Discharge Plan - Discharge Condition Condition: Stable - Discharge Order Discharge Orders: Discharge Order (Routine); Ordered 12/07/17 Ordered By: Marilyn Petersen - Physicians Team Primary Care Provider: Primary Care Delia,Ainsley Attending Provider: Marilyn Petersen
[2017-12-07] MEDS: Multivitamin Inj 10 ML, Thiamine Inj 100 MG, Folic Acid Inj 1 MG in Sodium Chlor 0.9% I... IV.SIG SCH (09:40)
== END 2017-12-07 10:55 | disposition home or self-care (01) ==
LOC: PHED 08:11 → PHEDA 11:46 → PH3 13:28
PROVIDERS: ADMIT Internal Medicine; ATTEND Internal Medicine